=== PATIENT | female | born 1930 | race Caucasian/White ===

== ENCOUNTER 2017-12-30 17:07 | Observation (INO) ==
--- NOTE | 2017-12-30 17:39 | ED ---
HPI General Chief Complaint: Chest Pain Stated Complaint: Chest Pain Complaint Time Seen by Provider: 12/30/17 17:31 History of Present Illness HPI narrative: This is a 87-year-old female with a history of hypertension, dyslipidemia, diabetes mellitus, dementia, who presents via EMS with complaints of chest tightness. According to the paramedics, she is well cared for by her family members. She apparently told her family members that she was having chest tightness and they called 9 11 the patient denies any pain at at the time of my examination. She is demented and continually asked why she is here. The patient apparently had received 324 mg of aspirin and 1 spray of nitro en route. Data Management Specialist reports that she looked up at them after the first nitroglycerin and said I am pain-free. She does not recall stating this. Related Data Home Medications Medication Instructions Recorded Confirmed amlodipine 2.5 mg PO DAILY 12/02/17 12/30/17 aspirin 81 mg PO DAILY 12/02/17 12/30/17 atorvastatin 20 mg PO DAILY 12/02/17 12/30/17 ergocalciferol (vitamin D2) 1.25 mg PO QWEEK 12/02/17 12/30/17 [Vitamin D2] furosemide 60 mg PO DAILY 12/02/17 12/30/17 glimepiride 1 mg PO QAM 12/02/17 12/30/17 levothyroxine 150 mcg PO DAILY 12/02/17 12/30/17 linagliptin [Tradjenta] 5 mg PO DAILY 12/02/17 12/30/17 memantine-donepezil [Namzaric] 1 cap PO DAILY 12/02/17 12/30/17 olmesartan 20 mg PO DAILY 12/02/17 12/30/17 potassium chloride [Klor-Con 10] 20 meq PO DAILY 12/02/17 12/30/17 sertraline 100 mg PO DAILY 12/02/17 12/30/17 Allergies Allergy/AdvReac Type Severity Reaction Status Date / Time No Known Allergies Allergy Verified 12/30/17 17:15 Review of Systems ROS Unobtainable ROS Unobtainable: unobtainable due to mental status (Patient has dementia and has no complaints at the time of my examination. She does not recall having chest pain prior to arrival.) ROS: all other systems reviewed are negative [facility] Social History Social History Substance History: No History of Abuse Second Hand Smoke Exposure: No Smoking Status: Former smoker How Often Do You Have a Drink Containing Alcohol: Monthly or less Recent Travel in [facility] within the Last 8 Weeks: No Recent Out of Country Travel within the Last 8 Weeks: No Immunization History Tetanus Immunization: Unable to Assess Exam Narrative Exam Narrative: GENERAL: Well-developed well-nourished female in no acute respiratory distress. The patient was joking with the nursing staff and paramedics staff when she entered the room. SKIN: Focused skin assessment warm/dry. HEAD: Atraumatic. Normocephalic. EYES: Pupils equal and round. No scleral icterus. No injection or drainage. ENT: No nasal bleeding or discharge. Mucous membranes pink and moist. NECK: Trachea midline. Supple. CARDIOVASCULAR: Regular rate and rhythm. No murmur appreciated. RESPIRATORY: No accessory muscle use. Clear to auscultation. Breath sounds equal bilaterally. GASTROINTESTINAL: Abdomen soft, non-tender, nondistended. No pulsatile masses. MUSCULOSKELETAL: No obvious deformities. No clubbing. No cyanosis. No edema. NEUROLOGICAL: Awake and alert. The patient does have dementia and continually asked why she is here. No obvious cranial nerve deficits. Motor grossly within normal limits. Normal speech. Course Initial Documented Vital Signs Temperature 98.3 F 12/30/17 17:16 Pulse Rate 86 12/30/17 17:16 Respiratory Rate 15 12/30/17 17:16 Blood Pressure 110/49 L 12/30/17 17:16 Pulse Oximetry 96 12/30/17 17:16 Last Documented Vital Signs Temperature 98.3 F 12/30/17 17:16 Pulse Rate 75 12/30/17 18:15 Respiratory Rate 15 12/30/17 18:15 Blood Pressure 109/54 L 12/30/17 18:15 Pulse Oximetry 97 12/30/17 18:15 Medical Decision Making MDM Narrative Medical decision making narrative: 87-year-old female with history of dementia, hypertension, hyperlipidemia, diabetes mellitus, presents today with complaints of chest pain. Patient had a initiated shortness of breath. The sister who is at the bedside now states the pain was described as tightness. She stated she also felt short of breath with the discomfort. She is symptom-free right now. Cardiac enzymes and EKG do not show acute process. Given this is her third visit in 1 month, we will admit the patient to the hospital under observation. She will be ruled out and have a stress test. Given her dementia, I do not think she is a good chest pain candidate. There is a call out to the [facility] for observation admission. Medical Screen Exam Complete: Yes Emergency Medical Condition: Yes Differential Diagnosis Differential Diagnosis: ACS versus GERD versus pneumonia pulmonary embolus Lab Data Result diagrams: 12/30/17 17:45 12/30/17 17:45 Lab Results 12/30/17 12/30/17 Range/Units 17:45 17:45 WBC 11.3 H (4.0-11.0) th/mm3 RBC 3.81 L (4.00-5.30) mil/mm3 Hgb 12.3 (11.6-15.3) gm/dL Hct 35.8 (35.0-46.0) % MCV 93.9 (80.0-100.0) fL MCH 32.3 (27.0-34.0) pg MCHC 34.4 (32.0-36.0) % RDW 12.8 (11.6-17.2) % Plt Count 203 (150-450) th/mm3 MPV 9.2 (7.0-11.0) fL Prelim Diff (Auto) Slide review pending Neut % (Auto) 76.3 H (16.0-70.0) % Lymph % (Auto) 13.6 (9.0-44.0) % Cross % (Auto) 6.9 (0.0-8.0) % Eos % (Auto) 2.7 (0.0-4.0) % Baso % (Auto) 0.5 (0.0-2.0) % Neut # (Auto) 8.6 H (1.8-7.7) th/mm3 Lymph # (Auto) 1.5 (1.0-4.8) th/mm3 Cross # (Auto) 0.8 (0.0-0.9) th/mm3 Eos # (Auto) 0.3 (0.0-0.4) th/mm3 Baso # (Auto) 0.1 (0.0-0.2) th/mm3 Differential Comment . Sodium 139 (136-145) meq/L Potassium 4.3 (3.5-5.1) meq/L Chloride 103 (98-107) meq/L Carbon Dioxide 25.9 (21.0-32.0) meq/L Anion Gap 10 (5-15) meq/L BUN 25 H (7-18) mg/dL Creatinine 1.49 H (0.50-1.00) mg/dL Estimated GFR 33 L (>89) mL/min Random Glucose 224 H (74-106) mg/dL Calcium 8.9 (8.5-10.1) mg/dL Total Bilirubin 0.2 (0.2-1.0) mg/dL AST 24 (15-37) U/L ALT 15 (10-53) U/L Alkaline Phosphatase 88 (45-117) U/L Total Creatine Kinase 68 (26-192) U/L Troponin I 0.02 (0.02-0.05) ng/mL Total Protein 6.9 (6.4-8.2) g/dL Albumin 3.4 (3.4-5.0) g/dL Imaging Data Radiologist's impression: Chest X-Ray 12/30/17 17:31 CONCLUSION: 1. No acute abnormality or significant interval change. Discharge Plan Discharge Disposition Patient Disposition: 30 Still Patient Discharge Details Diagnosis: Chest pain, HTN (hypertension), Diabetes mellitus, Dyslipidemia Physicians Team ED Provider: Eren Minor Primary Care Provider: UNKNOWN, Rxs /Orders / Referrals /Forms Prescriptions: No Action atorvastatin 20 mg Tablet 20 mg PO DAILY RF: 0 sertraline 100 mg Tablet 100 mg PO DAILY RF: 0 amlodipine 2.5 mg Tablet 2.5 mg PO DAILY RF: 0 potassium chloride [Klor-Con 10] 10 mEq Tablet Extended Release 20 meq PO DAILY RF: 0 glimepiride 1 mg Tablet 1 mg PO QAM RF: 0 furosemide 80 mg Tablet 60 mg PO DAILY RF: 0 levothyroxine 150 mcg Tablet 150 mcg PO DAILY RF: 0 aspirin 81 mg Tablet,Chewable 81 mg PO DAILY RF: 0 ergocalciferol (vitamin D2) [Vitamin D2] 50,000 unit Capsule 1.25 mg PO QWEEK RF: 0 olmesartan 20 mg Tablet 20 mg PO DAILY RF: 0 linagliptin [Tradjenta] 5 mg Tablet 5 mg PO DAILY RF: 0 memantine-donepezil [Namzaric] 28-10 mg Capsule,Sprinkle,Er 24hr 1 cap PO DAILY RF: 0 Discharge Instructions Patient Printed Instructions: Chest Pain (ED) Discharge Interventions Interventions: Vital Signs Last Done: 12/30/17 17:21 Status ED Status: With Doctor
[2017-12-30 18:11] LABS: Baso # (Auto) 0.1 th/mm3 (0.0-0.2); Baso % (Auto) 0.5 % (0.0-2.0); Eos # (Auto) 0.3 th/mm3 (0.0-0.4); Eos % (Auto) 2.7 % (0.0-4.0); Hematocrit 35.8 % (35.0-46.0); Hemoglobin 12.3 gm/dL (11.6-15.3); Lymph # (Auto) 1.5 th/mm3 (1.0-4.8); Lymph % (Auto) 13.6 % (9.0-44.0); Mean Corpuscular HGB Conc 34.4 % (32.0-36.0); Mean Corpuscular Hemoglobin 32.3 pg (27.0-34.0); Mean Corpuscular Volume 93.9 fL (80.0-100.0); Mean Platelet Volume 9.2 fL (7.0-11.0); Mono # (Auto) 0.8 th/mm3 (0.0-0.9); Mono % (Auto) 6.9 % (0.0-8.0); Neut # (Auto) 8.6 th/mm3 (1.8-7.7); Neut % (Auto) 76.3 % (16.0-70.0); Platelet Count 203 th/mm3 (150-450); Red Blood Count 3.81 mil/mm3 (4.00-5.30); Red Cell Distribution Width 12.8 % (11.6-17.2); White Blood Count 11.3 th/mm3 (4.0-11.0)
[2017-12-30 18:29] LABS: Anion Gap 10 meq/L (5-15); Carbon Dioxide 25.9 meq/L (21.0-32.0); Chloride 103 meq/L (98-107); Potassium 4.3 meq/L (3.5-5.1); Sodium 139 meq/L (136-145)
[2017-12-30 18:30] LABS: Albumin 3.4 g/dL (3.4-5.0); Blood Urea Nitrogen 25 mg/dL (7-18); Calcium 8.9 mg/dL (8.5-10.1); Glucose,Random 224 mg/dL (74-106)
[2017-12-30 18:36] LABS: Alanine Aminotransferase 15 U/L (10-53); Aspartate Aminotransferase 24 U/L (15-37); Creatine Kinase 68 U/L (26-192); Glomerular Filtration Rate 33 mL/min (>89)
[2017-12-30 18:37] LABS: Alkaline Phosphatase 88 U/L (45-117); Total Protein 6.9 g/dL (6.4-8.2); Troponin I 0.02 ng/mL (0.02-0.05)
--- NOTE | 2017-12-30 18:51 | XR ---
EXAM DATE: 12/30/2017 6:08 PM EST AGE/SEX: 87 years / Female INDICATIONS: Chest pain. CLINICAL DATA: This is the patient's initial encounter. Patient reports that signs and symptoms have been present for 1 day and indicates a pain score of 4/10. MEDICAL/SURGICAL HISTORY: Dementia. None. COMPARISON: . FINDINGS: No new focal pleural or parenchymal opacities. Cardiomediastinal contours are stable with persistent enlargement cardiac silhouette. Remainder of exam is unchanged. CONCLUSION: 1. No acute abnormality or significant interval change. Electronically signed by: Ahmet Miranda MD 12/30/2017 6:50 PM EST
[2017-12-30 19:12] LABS: Eosinophils 5 % (0-4); Lymphocytes 13 % (9-44); Monocytes 7 % (0-8)
[2017-12-30 19:13] LABS: Platelet Estimate Normal (Normal); Platelet Morphology Normal (Normal); Toxic Granulation 1+
[2017-12-30] MEDS ORDERED: Bisacodyl 10 MG Supp RECTAL PRN (20:24)
[2017-12-30] MEDS ORDERED: Acetaminophen 325 MG Tablet PO PRN (20:24)
[2017-12-30] MEDS ORDERED: Dextrose 50% in Water 50 ML Vial IV.PUSH PRN (20:30)
--- NOTE | 2017-12-30 20:41 | P.HP ---
History of Present Illness Service: [facility] Primary Care Physician: UNKNOWN History of Present Illness: 87-year-old female with a past medical history significant for aortic stenosis, diabetes mellitus, hypothyroidism, hypertension, hyperlipidemia and dementia presents the emergency department for evaluation of shortness of breath chest pain. The patient is unable to provide any history herself secondary to her dementia however her sisters who are with her at the time state that she began gasping and complaining of shortness of breath. She also complained of chest heaviness and nausea with left sided rib pain. The patient was given nitro in route by EMS and her pain is subsided. She has no complaints at this time other than states she would like to go home. 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 She currently denies any chest pain or shortness of breath. No nausea/vomiting/diarrhea. No lateralizing signs/symptoms. No fever/chills. Review of Systems All other systems reviewed negative except as stated in [facility] - History History Provided By: Hospice Chaplain / EMT - Medical History Medical History: Medical History (Last Reviewed 12/30/17 @ 20:34 by Ce Bello MD) Aortic stenosis Dementia Diabetes Hypercholesteremia Hypertension Hypothyroid - Surgical History Surgical History: Surgical History (Last Reviewed 12/30/17 @ 20:34 by Ce Bello MD) History of appendectomy - Family History Family History: Family History (Last Updated 12/30/17 @ 20:35 by Ce Bello MD) Other Coronary artery disease Diabetes mellitus - Tobacco History Second Hand Smoke Exposure: No Tobacco Use In Past 30 Days: No Smoking Status: Former smoker - Alcohol History How Often Do You Have a Drink Containing Alcohol: Monthly or less - Substance Use History Substance History: No History of Abuse - Travel History Recent Travel in the [place] Within the Last 8 Weeks: No Recent Travel Out of the Country Within the Last 8 Weeks: No - Immunization History Tetanus Immunization: Unable to Assess Medications and Allergies Active Medications: Active Medications Acetaminophen (Tylenol) 650 mg PO Q4H PRN PRN Reason: Temp > 100.4 Al Hydroxide/Mg Hydroxide (Milk Of Magnronda Liq) 30 ml PO Q12H PRN PRN Reason: Mild Constipation Aspirin (Aspirin Chew) 81 mg PO DAILY [facility] Atorvastatin Calcium (Lipitor) 20 mg PO DAILY [facility] Bisacodyl (Dulcolax Supp) 10 mg RECTAL DAILY PRN PRN Reason: SEVERE CONSITIPATION Dextrose (D50w Vial) 50 ml IV.PUSH UNSCH PRN PRN Reason: PER HYPOGLYCEMIA PROTOCOL Furosemide (Lasix) 60 mg PO DAILY [facility] Glucagon (Glucagon Inj) 1 mg OTHER PRN PRN PRN Reason: for Hypoglycemia Protocol Heparin Sodium (Porcine) (Heparin Inj) 5,000 units SQ Q12H [facility] Sodium Chloride (Ns Inj) 1,000 mls @ 70 mls/hr IV.CONT .[id number] [facility] Insulin Aspart (Novolog Insulin Correctional Sugar Inj) 0 unit SQ ACHS AND 3AM [facility]; Protocol Lactulose (Lactulose Liq) 30 ml PO DAILY PRN PRN Reason: SEVERE CONSITIPATION Levothyroxine Sodium (Synthroid) 150 mcg PO DAILY [facility] Non-Formulary Medication (Amlodipine [Amlodipine]) 2.5 mg PO DAILY [facility] Non-Formulary Medication (Memantine-Donepezil [Namzaric]) 1 cap PO DAILY [facility] Ondansetron HCl (Zofran Inj) 4 mg IV.PUSH Q6H PRN PRN Reason: NAUSEA OR VOMITING Potassium Chloride (Klor-Con 10) 20 meq PO DAILY [facility] Senna/Docusate Sodium (Gypsy-Colace) 1 tab PO BID [facility] Sennosides (Senokot) 17.2 mg PO Q12H PRN PRN Reason: Moderate Constipation Sertraline HCl (Zoloft) 100 mg PO DAILY [facility] Sodium Chloride (Ns Flush) 2 ml IV.FLUSH UNSCH PRN PRN Reason: FLUSH AFTER USING IV ACCESS Allergies Allergy/AdvReac Type Severity Reaction Status Date / Time No Known Allergies Allergy Verified 12/30/17 17:15 Home Medications Medication Instructions Recorded Confirmed Type amlodipine 2.5 mg PO DAILY 12/02/17 12/30/17 History aspirin 81 mg PO DAILY 12/02/17 12/30/17 History atorvastatin 20 mg PO DAILY 12/02/17 12/30/17 History ergocalciferol (vitamin D2) 1.25 mg PO QWEEK 12/02/17 12/30/17 History [Vitamin D2] furosemide 60 mg PO DAILY 12/02/17 12/30/17 History glimepiride 1 mg PO QAM 12/02/17 12/30/17 History levothyroxine 150 mcg PO DAILY 12/02/17 12/30/17 History linagliptin [Tradjenta] 5 mg PO DAILY 12/02/17 12/30/17 History memantine-donepezil [Namzaric] 1 cap PO DAILY 12/02/17 12/30/17 History olmesartan 20 mg PO DAILY 12/02/17 12/30/17 History potassium chloride [Klor-Con 10] 20 meq PO DAILY 12/02/17 12/30/17 History sertraline 100 mg PO DAILY 12/02/17 12/30/17 History Exam Vital signs: Vital Signs 12/30/17 17:16 12/30/17 17:21 12/30/17 17:43 Temperature 98.3 F Pulse Rate 86 75 Respiratory Rate 15 15 Blood Pressure 110/49 L Pulse Oximetry 96 96 97 12/30/17 18:15 Temperature Pulse Rate 75 Respiratory Rate 15 Blood Pressure 109/54 L Pulse Oximetry 97 Intake & Output 12/30/17 12/30/17 12/31/17 06:59 18:59 06:59 Weight 83.915 kg Narrative: Gen.: No acute distress Head: Normocephalic. Atraumatic. EENT: Pupils equal round and reactive to light. Nose without drainage. Airway intact. Throat without injection. Cardiovascular: Regular rate and rhythm. 4/6 murmur c/w . Respiratory: Lungs clear to auscultation bilaterally. No wheezes or rhonchi. Abdomen: Soft, nontender, nondistended. No peritoneal signs. Musculoskeletal: No gross deformities. No edema. Skin: No obvious rashes or erythema. Neuro: Sensory and motor grossly intact. Cranial nerves II through XII grossly intact. Results - Labs CBC & Chem 7: 12/30/17 17:45 12/30/17 17:45 Labs: Laboratory Results - last 24 hr 12/30/17 12/30/17 17:45 17:45 WBC 11.3 H RBC 3.81 L Hgb 12.3 Hct 35.8 MCV 93.9 MCH 32.3 MCHC 34.4 RDW 12.8 Plt Count 203 MPV 9.2 Prelim Diff (Auto) Slide review pending Neut % (Auto) 76.3 H Lymph % (Auto) 13.6 [place] % (Auto) 6.9 Eos % (Auto) 2.7 Baso % (Auto) 0.5 Neut # (Auto) 8.6 H Lymph # (Auto) 1.5 [place] # (Auto) 0.8 Eos # (Auto) 0.3 Baso # (Auto) 0.1 WBC Differential Manual diff final Seg Neuts % (Manual) 73 H Band Neuts % (Manual) 2 Lymphocytes % (Manual) 13 Monocytes % (Manual) 7 Eosinophils % (Manual) 5 H Abs Neuts (Manual) 8.5 H Differential Comment . Toxic Granulation 1+ H Platelet Estimate Normal Platelet Morphology Normal Sodium 139 Potassium 4.3 Chloride 103 Carbon Dioxide 25.9 Anion Gap 10 BUN 25 H Creatinine 1.49 H Estimated GFR 33 L Random Glucose 224 H Calcium 8.9 Total Bilirubin 0.2 AST 24 ALT 15 Alkaline Phosphatase 88 Total Creatine Kinase 68 Troponin I 0.02 Total Protein 6.9 Albumin 3.4 - Imaging Impressions Chest X-Ray 12/30/17 17:31 CONCLUSION: 1. No acute abnormality or significant interval change. Caprini VTE Risk Assessment Caprini VTE Risk Assessment: Moderate/High Risk (score >= 2) Caprini Risk Assessment Model: Point Value = 1 Point Value = 2 Point Value = 3 Point Value = 5 Age 41-60 Minor surgery BMI > 25 kg/m2 Swollen legs Varicose veins or History of unexplained or recurrent spontaneous Oral contraceptives or hormone replacement Sepsis (< 1 month) Serious lung disease, including pneumonia (< 1 month) Abnormal pulmonary function Acute myocardial infarction Congestive heart failure (< 1 month) History of inflammatory bowel disease Medical patient at bed rest Age 61-74 Arthroscopic surgery Major open surgery (> 45 min) Laparoscopic surgery (> 45 min) Malignancy Confined to bed (> 72 hours) Immobilizing plaster cast Central venous access Age >= 75 History of VTE Family history of VTE Factor V Leiden Prothrombin [id number] Lupus anticoagulant Anticardiolipin antibodies Elevated serum homocysteine Heparin-induced thrombocytopenia Other congenital or acquired thrombophilia Stroke (< 1 month) Elective arthroplasty Hip, pelvis, or leg fracture Acute spinal cord injury (< 1 month) Prophylaxis Regimen: Total Risk Factor Score Risk Level Prophylaxis Regimen 0-1 Low Early ambulation 2 Moderate Order ONE of the following: *Sequential Compression Device (SCD) *Heparin 5000 units SQ BID 3-4 Higher Order ONE of the following medications: *Heparin 5000 units SQ TID *Enoxaparin/Lovenox 40 mg SQ daily (WT < 150 kg, CrCl > 30 mL/min) *Enoxaparin/Lovenox 30 mg SQ daily (WT < 150 kg, CrCl > 10-29 mL/min) *Enoxaparin/Lovenox 30 mg SQ BID (WT < 150 kg, CrCl > 30 mL/min) AND/OR *Sequential Compression Device (SCD) 5 or more Highest Order ONE of the following medications: *Heparin 5000 units SQ TID (Preferred with Epidurals) *Enoxaparin/Lovenox 40 mg SQ daily (WT < 150 kg, CrCl > 30 mL/min) *Enoxaparin/Lovenox 30 mg SQ daily (WT < 150 kg, CrCl > 10-29 mL/min) *Enoxaparin/Lovenox 30 mg SQ BID (WT < 150 kg, CrCl > 30 mL/min) AND *Sequential Compression Device (SCD) Assessment and Plan - Plan Assessment/plan: 1. Chest pain/shortness of breath EKG showed normal sinus rhythm, no ST segment elevation or depression, personally reviewed Initial troponin normal Chest x-ray without acute process, personally reviewed ACS rule out pending; serial troponins/EKGs 2. Aortic stenosis Patient followed by her spray unit feeder in [place] however has been in the [facility] ED 3 times in the past month for chest pain Echo pending 3. Diabetes mellitus Holding home oral anti-hyperglycemics Sliding-scale insulin Monitor blood glucose 4. Acute kidney injury Creatinine 1.49, baseline 1.2 Gentle IV fluid hydration Monitor renal function 5. Hypertension/hyperlipidemia/hypothyroidism/dementia Continue home medications FEN N.p.o. Electrolytes: Monitor and replete as needed NS at 70 cc/hour Heparin
[2017-12-30] MEDS: Senna/Docusate Sodium 8.6/50 MG Tablet PO SCH (22:07)
[2017-12-30] MEDS: Insulin NovoLOG Aspart Correctional Sugar Inj SQ SCH (22:07)
[2017-12-30] MEDS: Heparin - SQ 10,000 UNITS/ML Vial SQ SCH (22:22)
[2017-12-30] MEDS: Sod Chloride 0.9% Inj 1,000 ML IV.CONT SCH (22:22)
[2017-12-31 03:00] LABS: Anion Gap 11 meq/L (5-15); Blood Urea Nitrogen 25 mg/dL (7-18); Carbon Dioxide 26.1 meq/L (21.0-32.0); Chloride 106 meq/L (98-107); Glomerular Filtration Rate 37 mL/min (>89); Glucose,Random 99 mg/dL (74-106); Potassium 4.3 meq/L (3.5-5.1); Sodium 143 meq/L (136-145)
[2017-12-31 03:15] LABS: Creatine Kinase 54 U/L (26-192)
[2017-12-31] MEDS: Insulin NovoLOG Aspart Correctional Sugar Inj SQ SCH ×2 (03:30→08:33)
[2017-12-31] MEDS ORDERED: Levothyroxine 150 MCG Tablet PO SCH (06:00)
[2017-12-31] MEDS: Sod Chloride 0.9% Inj 1,000 ML IV.CONT SCH (06:41)
[2017-12-31] MEDS: Heparin - SQ 10,000 UNITS/ML Vial SQ SCH (08:33)
[2017-12-31] MEDS: Senna/Docusate Sodium 8.6/50 MG Tablet PO SCH (08:37)
[2017-12-31] MEDS ORDERED: Sertraline 100 MG Tablet PO SCH (09:00)
[2017-12-31] MEDS ORDERED: amLODIPine 5 MG Tablet PO SCH (09:00)
[2017-12-31] MEDS ORDERED: Furosemide 20 MG Tablet PO SCH (09:00)
--- NOTE | 2017-12-31 10:14 | P.PN ---
Subjective Interval history: follow up for cp, sob: Patient seen and examined, ambulating with walker, noted short of breath. Complains of some chest discomfort. Patient forgetful, continues to repeat herself. States that she does not have any heart problems, her 2 sisters who are her POA's at bedside indicates she has history of aortic stenosis but patient and cardiothoracic surgery do not want to do any surgical intervention. Patient has history of dementia, she has been in the emergency room 2 times before for same symptoms. They are requesting a cardiology consultation, they are here visiting from [facility] and will be going back later in the month. Indicates that patient has been declining for the last 7 months. Physical Exam Vital signs: Vital Signs 12/30/17 17:16 12/30/17 17:21 12/30/17 17:43 Temperature 98.3 F Pulse Rate 86 75 Respiratory Rate 15 15 Blood Pressure 110/49 L Pulse Oximetry 96 96 97 12/30/17 18:15 12/30/17 20:30 12/30/17 22:06 Temperature 98.4 F Pulse Rate 75 68 65 Respiratory Rate 15 16 16 Blood Pressure 109/54 L 105/54 L 127/61 Pulse Oximetry 97 96 95 12/30/17 22:54 12/31/17 03:42 12/31/17 07:53 Temperature 98.9 F Pulse Rate 63 83 Respiratory Rate 17 Blood Pressure 128/55 L Pulse Oximetry 93 L 95 12/31/17 08:00 Temperature Pulse Rate 63 Respiratory Rate Blood Pressure Pulse Oximetry Intake & Output 12/30/17 12/31/17 12/31/17 18:59 06:59 18:59 Intake Total 1240 / 1240 Balance 1240 / 1240 Weight 83.915 kg 83 kg Intake: IV 1000 / 1000 NS Inj 1,000 ML @ 70 mls/hr IV. 1000 / 1000 CONT .[id number] [facility] Rx#:[id number] Oral 240 / 240 Other: # Voids 2 Date of Last Bowel Movement 12/29/17 12/30/17 Weight On Admission 83 kg Narrative: Gen: 87-year-old elderly female, not short of breath with activity. Head: Normocephalic. Atraumatic. EENT: Pupils equal round and reactive to light. Nose without drainage. Airway intact. Throat without injection. Cardiovascular: Regular rate and rhythm. 4/6 murmur c/w . Respiratory: Lungs clear to auscultation bilaterally. No wheezes or rhonchi. Abdomen: Soft, nontender, nondistended. No peritoneal signs. Musculoskeletal: No gross deformities. No edema. Skin: No obvious rashes or erythema. Neuro: Pleasant, forgetful. Oriented x3 but poor historian. No focal deficits Results - Labs CBC & Chem 7: 12/30/17 17:45 12/31/17 02:14 Laboratory Results - last 24 hr 12/30/17 12/30/17 12/30/17 17:45 17:45 22:03 WBC 11.3 H RBC 3.81 L Hgb 12.3 Hct 35.8 MCV 93.9 MCH 32.3 MCHC 34.4 RDW 12.8 Plt Count 203 MPV 9.2 Prelim Diff (Auto) Slide review pending Neut % (Auto) 76.3 H Lymph % (Auto) 13.6 [place] % (Auto) 6.9 Eos % (Auto) 2.7 Baso % (Auto) 0.5 Neut # (Auto) 8.6 H Lymph # (Auto) 1.5 [place] # (Auto) 0.8 Eos # (Auto) 0.3 Baso # (Auto) 0.1 WBC Differential Manual diff final Seg Neuts % (Manual) 73 H Band Neuts % (Manual) 2 Lymphocytes % (Manual) 13 Monocytes % (Manual) 7 Eosinophils % (Manual) 5 H Abs Neuts (Manual) 8.5 H Differential Comment . Toxic Granulation 1+ H Platelet Estimate Normal Platelet Morphology Normal Sodium 139 Potassium 4.3 Chloride 103 Carbon Dioxide 25.9 Anion Gap 10 BUN 25 H Creatinine 1.49 H Estimated GFR 33 L POC Glucose 100 Random Glucose 224 H Calcium 8.9 Total Bilirubin 0.2 AST 24 ALT 15 Alkaline Phosphatase 88 Total Creatine Kinase 68 Troponin I 0.02 Total Protein 6.9 Albumin 3.4 12/31/17 12/31/17 02:14 08:33 WBC RBC Hgb Hct MCV MCH MCHC RDW Plt Count MPV Prelim Diff (Auto) Neut % (Auto) Lymph % (Auto) [place] % (Auto) Eos % (Auto) Baso % (Auto) Neut # (Auto) Lymph # (Auto) [place] # (Auto) Eos # (Auto) Baso # (Auto) WBC Differential Seg Neuts % (Manual) Band Neuts % (Manual) Lymphocytes % (Manual) Monocytes % (Manual) Eosinophils % (Manual) Abs Neuts (Manual) Differential Comment Toxic Granulation Platelet Estimate Platelet Morphology Sodium 143 Potassium 4.3 Chloride 106 Carbon Dioxide 26.1 Anion Gap 11 BUN 25 H Creatinine 1.37 H Estimated GFR 37 L POC Glucose 97 Random Glucose 99 D Calcium 9.0 Total Bilirubin AST ALT Alkaline Phosphatase Total Creatine Kinase 54 Troponin I Less than 0.02 L Total Protein Albumin - Imaging Impressions Chest X-Ray 12/30/17 17:31 CONCLUSION: 1. No acute abnormality or significant interval change. Assessment and Plan - Assessment (1) Chest pain Code(s): R07.9 - Chest pain, unspecified Status: Acute (2) HTN (hypertension) Code(s): I10 - Essential (primary) hypertension Status: Chronic (3) Diabetes mellitus Code(s): E11.9 - Type 2 diabetes mellitus without complications Status: Chronic (4) Dyslipidemia Code(s): E78.5 - Hyperlipidemia, unspecified Status: Chronic (5) Aortic stenosis Code(s): I35.0 - Nonrheumatic aortic (valve) stenosis Status: Chronic - Plan 87-year-old female with a past medical history significant for aortic stenosis, diabetes mellitus, hypothyroidism, hypertension, hyperlipidemia and dementia presents the emergency department for evaluation of shortness of breath chest pain. Chest pain/shortness of breath EKG showed normal sinus rhythm, no ST segment elevation or depression, personally reviewed Initial troponin normal Chest x-ray without acute process, personally reviewed ACS rule out pending; serial troponins/EKGs -cardiology consult Aortic stenosis Patient followed by her counter supervisor in [place] however has been in the [place] ED 3 times in the past month for chest pain -echo pending -continue Lasix Diabetes mellitus -Holding home oral anti-hyperglycemics -Sliding-scale insulin -Monitor blood glucose Acute kidney injury Creatinine 1.49, baseline 1.2 -gentle hydration -monitor BMP Hypertension/hyperlipidemia/hypothyroidism/dementia -Continue home medications Heparin for DVT prophylaxis Poss dc today or tomorrow depending cardiology input pt's sister don't want to have any procedures here if any addendum: Dr. Smith evaluated pt. Spoke to her counter supervisor in [facility]. Pt. was evaluated by TAVR team, not candidate for surgery due to advanced age, comorbidities, dementia. D/W pt's sisters, they want to go home. Asking what to do if sx recurred. Recommended hospice to assist with symptom management as she is likely to continue declining. They are agreeable and will be heading back to [facility] end of next week. Pt. denies any cp, sob with activity only. 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
[2017-12-31 10:43] LABS: Creatine Kinase 65 U/L (26-192)
--- NOTE | 2017-12-31 12:51 | ECG ---
Date Performed: 12/30/2017 Time Performed: 17:18:52 PTAGE: 87 years EKG: Sinus rhythm NORMAL ECG Since the PREVIOUS TRACING , no significant change noted PREVIOUS TRACIN12/15/2017 18.12 DOCTOR: Margaux Lopes Interpretating Date/Time 12/31/2017 12:47:57
--- NOTE | 2017-12-31 13:23 | MB ---
cc: Lincoln Smith MD DATE: 12/31/2017 CARDIOLOGY CONSULTATION NOTE REASON FOR CONSULTATION: History of aortic stenosis, chest pain. HISTORY OF PRESENT ILLNESS: The patient is an 87-year-old white female with a history of aortic stenosis, dementia, hyperlipidemia, diabetes, hypertension, who was brought to the hospital by her sisters due to complaints of chest discomfort. The patient has had at least 3 episodes of left parasternal chest discomfort described as "pressure" in the last month. The episodes have lasted at least 30-40 minutes and have been associated with shortness of breath without nausea or diaphoresis. The patient states she underwent cardiac catheterization earlier this year in [place], showing no significant coronary artery disease. She denies pleurisy, lightheadedness, syncope, near syncope, palpitations, pedal edema, paroxysmal nocturnal dyspnea. PAST MEDICAL HISTORY: 1. Dementia. 2. Hyperlipidemia. 3. Diabetes. 4. Hypothyroidism. 5. Hypertension. 6. Severe aortic stenosis diagnosed earlier this year in [place], [place]. PAST SURGICAL HISTORY: Appendectomy. CARDIAC MEDICATIONS AT HOME: 1. Olmesartan 20 mg daily. 2. Potassium chloride 20 mEq daily. 3. Furosemide 60 mg daily. 4. Atorvastatin 20 mg daily. 5. Amlodipine 2.5 mg daily. 6. Aspirin 81 mg daily. ALLERGIES: NO KNOWN DRUG ALLERGIES. FAMILY HISTORY: Noncontributory. SOCIAL HISTORY: The patient is a former smoker. There is no history of alcohol abuse. REVIEW OF SYSTEMS: As in the history of present illness, otherwise negative or noncontributory. She also denies headache, abdominal pain, melena, dyspepsia, bright red blood per rectum. PHYSICAL EXAMINATION: VITAL SIGNS: Her blood pressure 114/58 with a pulse of 64, respirations 18. GENERAL: She is a well-developed, well-nourished white female, in no acute distress. NECK: Jugular venous pressure is normal. Carotid pulses are 1+ bilaterally and without bruits. CHEST: Reveals clear lungs benitez. CARDIAC: She has a regular rhythm and rate with a grade 2/6 systolic ejection murmur heard at the base of the heart. The S2 heart sound is markedly diminished. No gallop is audible. ABDOMEN: She has a soft, nontender abdomen. Bowel sounds are present. There is no definite hepatosplenomegaly. EXTREMITIES: Reveals no clubbing, cyanosis or edema. Peripheral pulses are normal throughout. DIAGNOSTIC DATA: 1. EKG shows normal sinus rhythm, normal EKG. 2. Chest x-ray shows no acute disease. LABORATORY DATA: Includes WBC 11.3, hemoglobin 12.3, platelets 203. Potassium 4.3, BUN 25, creatinine 1.37. Negative cardiac enzymes. IMPRESSION: Anginal-like chest discomforts in the past month in this 87-year-old white female with a history of severe aortic stenosis, hypertension, hypothyroidism, diabetes, dementia. Cardiac enzymes are negative for myocardial infarction. EKG is normal. The patient's family does report a cardiac catheterization earlier this year showing no significant coronary artery disease. Her symptoms may indeed be from severe aortic stenosis which her exam suggests. The patient may be a candidate for transcatheter aortic valve replacement (TAVR). RECOMMENDATIONS: 1. We will try to contact her station cashier in [place] regarding previous workup and discussions regarding her aortic valve stenosis. 2. We will consider consulting Dr. Chahal for possible TAVR. ADDENDUM: The patient's case was discussed with her station cashier in [place], [place], Dr. Kowalski. The patient was evaluated by their TAVR team earlier this year and felt to be a poor candidate for TAVR in part because of her dementia, lack of insight into her medical problems. Recommend discharging the patient home. Consider hospice care. MD DELVIS Islas/esperanza , 12:50 PM , 12:59 PM NAUN
== END 2017-12-31 15:59 | disposition home or self-care (01) ==
LOC: NEPC 17:07 → NEDA 17:07 → NEPGCP 21:00
PROVIDERS: ADMIT Family Medicine; ATTEND Family Medicine
DX: Z79.82 Long term (current) use of aspirin; Z83.3 Family history of diabetes mellitus; F03.90 Unspecified dementia, unspecified severity, without behavioral disturbance, psychotic disturbance, mood disturbance, and anxiety; Z87.891 Personal history of nicotine dependence; E78.00 Pure hypercholesterolemia, unspecified; I35.0 Nonrheumatic aortic (valve) stenosis; E78.5 Hyperlipidemia, unspecified; N17.9 Acute kidney failure, unspecified; E11.9 Type 2 diabetes mellitus without complications; R07.89 Other chest pain; E03.9 Hypothyroidism, unspecified; Z82.49 Family history of ischemic heart disease and other diseases of the circulatory system; Z79.899 Other long term (current) drug therapy; I10 Essential (primary) hypertension; Z90.49 Acquired absence of other specified parts of digestive tract